=== PATIENT | female | born 1940 | race Caucasian/White ===

== ENCOUNTER 2021-10-02 23:09 | Emergency (ER) | payer MEDICARE, OTHER ==
[~2021-10-02] VITALS: Ht 160 cm; Wt 90.7 kg
--- NOTE | 2021-10-02 23:36 | NUR ---
[id number]. L KNEE PAIN S/P TRIP & FALL. DENIES HT. NO BLOOD THINNER. NO NEURO DEFECITS NOTED PT ALERT ORIENTED X4. PLACED ON MONITOR AND ALL V/S STABLE.
[2021-10-02] MEDS ORDERED: ACETAMINOPHEN 325 MG TABLET ONE (23:37)
[2021-10-03] MEDS ORDERED: ACETAMINOPHEN 325 MG TABLET PO ONE
--- NOTE | 2021-10-03 00:55 | NUR ---
Patient discharged to home in stable condition. Written and verbal after care instructions given. Patient verbalizes understanding of instruction. Pt ambulatory with a steady gait
[2021-10-03 01:11] VITALS: BP 145/79
== END 2021-10-03 01:11 | disposition home or self-care (01) ==
LOC: ER 23:10
DX: S80.02XA Contusion of left knee, initial encounter (principal); E11.9 Type 2 diabetes mellitus without complications; M19.90 Unspecified osteoarthritis, unspecified site; Z88.6 Allergy status to analgesic agent; Z88.8 Allergy status to other drugs, medicaments and biological substances; Z60.2 Problems related to living alone; W01.0XXA Fall on same level from slipping, tripping and stumbling without subsequent striking against object, initial encounter; Y93.01 Activity, walking, marching and hiking; Y92.89 Other specified places as the place of occurrence of the external cause; Y99.8 Other external cause status
CPT/HCPCS: 73564-TC